=== PATIENT | female | born 1970 | race Two or more races ===

== ENCOUNTER 2021-09-03 07:48 | Day surgery (SDC) | payer OTHER ==
[~2021-09-03] VITALS: Ht 162.6 cm; Wt 77.1 kg
[~2021-09-03 07:48] MED LIST: ALBUTEROL IH; GLUMETZA500 MG PO; SIMVASTATIN40 MG PO; SINGULAIR10 MG PO
== END 2021-09-03 23:00 | disposition home or self-care (01) ==
LOC: CIR.AMB 07:48
PROVIDERS: ATTEND Obstetrics & Gynecology Gynecologic Oncology
DX: D25.9 Leiomyoma of uterus, unspecified (principal); Z20.822 Contact with and (suspected) exposure to COVID-19; J45.909 Unspecified asthma, uncomplicated; Z86.16 Personal history of COVID-19; E11.9 Type 2 diabetes mellitus without complications; Z79.84 Long term (current) use of oral hypoglycemic drugs